=== PATIENT | male | born 1980 ===

== ENCOUNTER 2024-11-28 12:01 | Emergency (ER) | payer OTHER ==
[~2024-11-28] VITALS: Ht 167.6 cm; Wt 98.0 kg
[2024-11-28 12:10] VITALS: BP 114/78; PULSE 94; RESP 18; TEMP 98.4; O2SAT 98
== END 2024-11-28 13:35 | disposition left against medical advice (07) ==
LOC: EMS 12:01
DX: R11.10 Vomiting, unspecified (principal); R10.9 Unspecified abdominal pain; Z53.21 Procedure and treatment not carried out due to patient leaving prior to being seen by health care provider